=== PATIENT | female | born 1990 | race Caucasian/White ===

== ENCOUNTER 2019-02-20 06:33 | Emergency (ER) | payer OTHER ==
[2019-02-20] MEDS: ONDANSETRON (ODT) 4 MG TAB ODT (07:19)
[2019-02-20] MEDS: LIDOCAINE 1% (MDV) 20 ML INJ SC (07:19)
[2019-02-20] MEDS: HYDROmorphONE 0.5 MG/0.5 ML SYG IM (07:19)
== END 2019-02-20 08:27 | disposition home or self-care (01) ==
LOC: FTE 08:27
DX: T16.1XXA Foreign body in right ear, initial encounter (principal); X58.XXXA Exposure to other specified factors, initial encounter; Y92.9 Unspecified place or not applicable
CPT/HCPCS: 69200; 96372; 99284-25